=== PATIENT | female | born 1940 ===

== ENCOUNTER 2023-02-13 19:44 | Inpatient (IN) | payer MEDICARE ==
[~2023-02-13] VITALS: Ht 167.6 cm; Wt 63.5 kg
[2023-02-13 19:50] VITALS: BP 103/75; PULSE 92; RESP 20; TEMP 98.1; O2SAT 100
[2023-02-13] MEDS ORDERED: NACL 0.9% 1,000 ML IV ONE (20:10)
[2023-02-13 20:21] LABS: APPEARANCE,URINE CLEAR (CLEAR); BILIRUBIN,URINE NEGATIVE (NEGATIVE); BLOOD, URINE NEGATIVE (NEGATIVE); COLOR,URINE YELLOW (YELLOW); LEUKOCYTE ESTERASE ,URINE NEGATIVE (NEGATIVE); NITRITE, URINE NEGATIVE (NEGATIVE); PROTEIN,URINE NEGATIVE (NEGATIVE); UGLUCOSE NEGATIVE (NEGATIVE); UROBILINOGEN,URINE 0.2 EU/dL (0.2 - 1)
[2023-02-13 20:22] LABS: BASOPHILS % (AUTO) 0.3 % (0.0-2.0); EOSINOPHILS % (AUTO) 0.6 % (0.0-4.0); HEMOGLOBIN 15.5 g/dL (12.0-16.0); LYMPHOCYTES # (AUTO) 1.4 K/uL (2.5-16.5); LYMPHOCYTES % (AUTO) 19.9 % (20.5-51.1); MEAN CORPUSCULAR HEMOGLOBIN 32 pg (27-31); MEAN CORPUSCULAR HGB CONC 33 g/dL (33-37); MEAN CORPUSCULAR VOLUME 97.4 fL (80-94); MONOCYTES # (AUTO) 0.6 K/uL (0.8-1.0); NEUTROPHILS % (AUTO) 70.2 % (42.2-75.2); PLATELET COUNT (AUTO) 209 K/uL (140-450); RED BLOOD CELL COUNT(AUTO) 4.83 MIL/uL (4.20-5.40); RED CELL DISTRIBUTION WIDTH 14.8 % (11.6-13.7); WHITE BLOOD COUNT (AUTO) 7.1 K/uL (4.8-10.8)
[2023-02-13 20:39] LABS: ALANINE AMINOTRANSFERASE 18 U/L (12-78); ALBUMIN 3.9 g/dL (3.4-5.0); ALKALINE PHOSPHATASE 52 U/L (50-136); ANION GAP 12.1 (8-16); ASPARTATE AMINOTRANSFERASE 17 U/L (15-37); CALCIUM 9.7 mg/dL (8.5-10.1); CARBON DIOXIDE 30.1 mmol/L (21-32); CHLORIDE 104 mmol/L (98-107); GLUCOSE 114 mg/dL (74-106); POTASSIUM 4.2 mmol/L (3.5-5.1); SODIUM SERUM 142 mmol/L (136-145); TOTAL BILIRUBIN 0.6 mg/dL (0.0-1.0); TOTAL PROTEIN, SERUM 7.3 g/dL (6.4-8.2); UREA NITROGEN, BLOOD 21 mg/dL (7-18)
[2023-02-13] MEDS ORDERED: MORPHINE SULFATE 4 MG/ML SYR IVP ONE (20:55)
[2023-02-13] MEDS ORDERED: ONDANSETRON 4 MG/2 ML VIAL IVP ONE (20:55)
[2023-02-13] MEDS ORDERED: ASPIRIN 325 MG TAB PO ONE (21:45)
[2023-02-13] MEDS ORDERED: FAMOTIDINE 20 MG/2 ML VIAL IVP ONE (22:30)
[2023-02-13] MEDS ORDERED: HYDR-5080 PO (22:50)
[2023-02-13] MEDS ORDERED: NACL 0.9% 1,000 ML IV SCH (23:05)
[2023-02-14 08:00] VITALS: PULSE 82; RESP 16; O2SAT 100
[2023-02-14 12:00] VITALS: BP 130/83; PULSE 54; PULSE 73; RESP 16; TEMP 98.1; O2SAT 96
[2023-02-14] MEDS: NACL 0.9% 1,000 ML IV SCH (14:06)
[2023-02-14] MEDS: MORPHINE SULFATE 2 MG/ML SYR IVP PRN (14:07)
[2023-02-14 16:00] VITALS: BP 149/95; PULSE 59; PULSE 65; RESP 16; TEMP 97.6; O2SAT 98
[2023-02-14 20:00] VITALS: BP 139/70; PULSE 68; PULSE 69; RESP 20; TEMP 97.9; O2SAT 97
[2023-02-15] VITALS: BP 136/82; PULSE 68; PULSE 69; RESP 20; TEMP 97.5; O2SAT 98
[2023-02-15 04:00] VITALS: BP 106/86; PULSE 61; PULSE 71; RESP 20; TEMP 97.4; O2SAT 96
[2023-02-15] MEDS: NACL 0.9% 1,000 ML IV SCH ×2 (05:46→14:40)
[2023-02-15 08:00] VITALS: BP 150/74; PULSE 61; PULSE 69; RESP 18; TEMP 97.7; O2SAT 97
[2023-02-15] MEDS: MORPHINE SULFATE 2 MG/ML SYR IVP PRN ×2 (10:26→20:10)
[2023-02-15 12:47] VITALS: BP 150/64; PULSE 51; PULSE 92; RESP 18; TEMP 97.7; O2SAT 97
[2023-02-15 14:48] LABS: BASOPHILS % (AUTO) 0.2 % (0.0-2.0); EOSINOPHILS % (AUTO) 0.4 % (0.0-4.0); HEMATOCRIT 46.1 % (36-48); HEMOGLOBIN 15.4 g/dL (12.0-16.0); LYMPHOCYTES % (AUTO) 18.3 % (20.5-51.1); MEAN CORPUSCULAR HEMOGLOBIN 32 pg (27-31); MEAN CORPUSCULAR HGB CONC 33 g/dL (33-37); MEAN CORPUSCULAR VOLUME 96.5 fL (80-94); NEUTROPHILS # (AUTO) 7.8 K/uL (1.8-7.7); NEUTROPHILS % (AUTO) 72.1 % (42.2-75.2); PLATELET COUNT (AUTO) 190 K/uL (140-450); RED BLOOD CELL COUNT(AUTO) 4.77 MIL/uL (4.20-5.40); RED CELL DISTRIBUTION WIDTH 15.1 % (11.6-13.7); WHITE BLOOD COUNT (AUTO) 10.8 K/uL (4.8-10.8)
[2023-02-15 14:55] LABS: CALCIUM 9.5 mg/dL (8.5-10.1); CARBON DIOXIDE 27.3 mmol/L (21-32); CHLORIDE 104 mmol/L (98-107); CREATININE 0.8 mg/dL (0.6-1.3); GLUCOSE 91 mg/dL (74-106); POTASSIUM 3.3 mmol/L (3.5-5.1); SODIUM SERUM 142 mmol/L (136-145); UREA NITROGEN, BLOOD 15 mg/dL (7-18)
[2023-02-15 16:00] VITALS: BP 166/81; PULSE 70; PULSE 85; RESP 18; TEMP 97.6; O2SAT 100
[2023-02-15] MEDS ORDERED: POTASSIUM CHLORIDE 20% 40 MEQ/15 ML UDC PO SCH (18:55)
[2023-02-15] MEDS ORDERED: hydrALAZINE 25 MG TAB PO PRN (19:15)
[2023-02-15 20:00] VITALS: BP 135/71; PULSE 67; PULSE 74; RESP 18; TEMP 97.5; O2SAT 96
[2023-02-16] VITALS: BP 141/68; PULSE 66; PULSE 71; RESP 18; TEMP 97.6; O2SAT 94
[2023-02-16] MEDS: MORPHINE SULFATE 2 MG/ML SYR IVP PRN ×4 (00:59→21:50)
[2023-02-16 04:00] VITALS: BP 150/81; PULSE 55; PULSE 86; RESP 18; TEMP 97.8; O2SAT 97
[2023-02-16] MEDS: NACL 0.9% 1,000 ML IV SCH ×2 (04:00→17:20)
[2023-02-16 08:00] VITALS: BP 152/82; PULSE 82; PULSE 90; RESP 18; RESP 20; TEMP 98.3; O2SAT 95; O2SAT 96
[2023-02-16] MEDS: ECOTRIN 81 MG TABEC PO SCH (09:50)
[2023-02-16 12:00] VITALS: BP 152/80; PULSE 82; RESP 18; TEMP 98.5; O2SAT 96
[2023-02-16] MEDS: HYDROcodone/APAP 5/325 MG 1 TAB TAB PO PRN ×2 (13:32→18:22)
[2023-02-16 16:00] VITALS: BP 146/65; PULSE 67; PULSE 99; RESP 18; TEMP 98.2; O2SAT 95
[2023-02-16 20:00] VITALS: BP 145/72; PULSE 60; PULSE 72; RESP 18; TEMP 97.3; O2SAT 99
[2023-02-17] VITALS: BP 152/82; PULSE 60; PULSE 62; PULSE 65; PULSE 72; RESP 18; TEMP 97.8; O2SAT 99
[2023-02-17] MEDS: NACL 0.9% 1,000 ML IV SCH (01:06)
[2023-02-17 04:00] VITALS: BP 158/80; PULSE 68; PULSE 72; RESP 20; TEMP 97.4; O2SAT 99
[2023-02-17 08:00] VITALS: BP 146/66; PULSE 68; PULSE 75; PULSE 82; RESP 18; TEMP 97.5; O2SAT 95; O2SAT 98
[2023-02-17] MEDS ORDERED: METOPROLOL SUCCINATE 50 MG TABER PO SCH (09:00)
[2023-02-17] MEDS ORDERED: LOSARTAN 25 MG TAB PO SCH ×2 (09:00→21:00)
[2023-02-17] MEDS: ECOTRIN 81 MG TABEC PO SCH (09:37)
[2023-02-17] MEDS ORDERED: KETOROLAC 30 MG/ML VIAL IVP SCH (09:50)
[2023-02-17 12:00] VITALS: BP 158/87; PULSE 75; PULSE 92; RESP 18; TEMP 97.5; O2SAT 95
[2023-02-17] MEDS: MORPHINE SULFATE 2 MG/ML SYR IVP PRN (12:36)
[2023-02-17] MEDS: HYDROcodone/APAP 5/325 MG 1 TAB TAB PO PRN (14:29)
[2023-02-17] MEDS ORDERED: LOSA-272 PO (15:45)
[2023-02-17] MEDS ORDERED: ASPI-1822 PO (15:45)
[2023-02-17] MEDS ORDERED: METO25TE2 PO (15:45)
[2023-02-17 16:00] VITALS: BP 158/78; PULSE 67; PULSE 77; RESP 18; TEMP 97.3; O2SAT 93
== END 2023-02-17 18:15 | disposition home or self-care (01) | DRG 444 ==
LOC: MED 19:44 → MTU 23:08
PROVIDERS: ADMIT Hospitalist; ATTEND Hospitalist
DX: K80.20 Calculus of gallbladder without cholecystitis without obstruction (principal); I21.A1 Myocardial infarction type 2; I48.20 Chronic atrial fibrillation, unspecified; H53.9 Unspecified visual disturbance; J44.9 Chronic obstructive pulmonary disease, unspecified; K44.9 Diaphragmatic hernia without obstruction or gangrene; Z85.118 Personal history of other malignant neoplasm of bronchus and lung; Z79.891 Long term (current) use of opiate analgesic; Z79.899 Other long term (current) drug therapy
CPT/HCPCS: 36415; 71045; 76705; 80048; 80053; 81003; 82550; 83690; 84484; 85025; 87081; 93005; 96374; 96375; 97110; 97163-GP; 97530; 99285; J1885; J2270; J2405; J3490; Q0092